=== PATIENT | male | born 1935 | race Two or more races ===

== ENCOUNTER → 2018-05-27 | Outpatient (CLI) | payer OTHER ==
--- NOTE | 2018-05-27 17:05 | RAD ---
Examination: 2 views of the lumbar spine HISTORY: History of acute low back pain COMPARISON: None available FINDINGS: Minimal compression change of L5 vertebral body likely chronic. Hardware identified in the region of the spinous process of L5. Moderate degenerative changes lumbar spine. Mild to moderate neural foraminal narrowing identified at L4-L5, L5-S1 vertebral levels. IMPRESSION: 1. Moderate degenerative changes lumbar spine. Electronically signed by: Coleman Daniels MD (05/27/2018 5:01 PM) [id number]
== END | disposition home or self-care (01) ==
LOC: PMG 15:58
PROVIDERS: ATTEND Family Medicine
DX: M47.896 Other spondylosis, lumbar region (principal); M48.061 Spinal stenosis, lumbar region without neurogenic claudication
CPT/HCPCS: 72100